=== PATIENT | male | born 1945 | race Caucasian/White ===

== ENCOUNTER 2020-12-01 16:00 | Day surgery (SDC) | payer MEDICARE, OTHER ==
[2020-12-01] MEDS ORDERED: Alum Hydrox/Mag Hydrox/Simeth 30 ML, Lidocaine 2% 15 ML PO ONE ×2 (17:31)
[2020-12-01] MEDS ORDERED: Metoclopramide 10 MG/2 ML SDV IVPUSH ONE (19:03)
[2020-12-01] MEDS ORDERED: Sodium Chloride 0.9% 10 ML Syringe FLUSH PRN (19:03)
[2020-12-01] MEDS ORDERED: Sodium Chloride 0.9% 1,000 ML IV STA (19:03)
[2020-12-01] MEDS ORDERED: HYDROmorphone 0.5 MG/0.5 ML Syringe IVPUSH ONE (19:05)
--- NOTE | 2020-12-01 19:56 | EDM.PDOC ---
ED HPI GENERAL MEDICAL PROBLEM - General Chief Complaint: Abdominal Pain Stated Complaint: ABDOMINAL PAIN Time Seen by Provider: 12/01/20 18:51 Source of Information: Reports: Patient History Limitations: Reports: No Limitations - History of Present Illness INITIAL COMMENTS - FREE TEXT/NARRATIVE: The patient presents with abdominal pain, nausea and vomiting. He says this has been going on for a few days. He had a CT scan done yesterday and it showed inflammation of his stomach. He was given some steroids to take and that is not helping. The patient has nausea and is dry heaving. He has not been able to eat or drink much. He has not had a bowel movement in about 3 days. He says he has no gas now either. He is worried he may be constipated or backed up. He was looking to get an enema. He has no fever, chills, cough, chest pain, shortness of breath, dysuria or diarrhea. He says his abdomen is firm and it hurts all over but worse in the left lower abdomen. He still has his appendix and gallbladder. Onset: Gradual Duration: Day(s): (5) Location: Reports: Abdomen Quality: Reports: Sharp Severity: Moderate Improves with: Reports: None Worsens with: Reports: None Associated Symptoms: Reports: Nausea/Vomiting. 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 Abdomen Pain Score (Numeric/FACES): 9 - Related Data Allergies Allergy/AdvReac Type Severity Reaction Status Date / Time No Known Allergies Allergy Verified 12/01/20 17:29 Home Meds: Home Meds Canagliflozin/Metformin HCl [Invokamet 150-1,000 mg Tablet] 1 tab PO DAILY 12/01/20 [History] Olmesartan/Hydrochlorothiazide [Olmesartan-Hctz 20-12.5 mg Tab] 1 tab PO DAILY 12/01/20 [History] Simvastatin 40 mg PO DAILY 12/01/20 [History] predniSONE [Prednisone] 10 mg PO DAILY 12/01/20 [History] Past Medical History HEENT History: Reports: Impaired Vision Cardiovascular History: Reports: High Cholesterol, Hypertension Gastrointestinal History: Reports: GERD Musculoskeletal History: Reports: Arthritis Psychiatric History: Reports: Anxiety - Past Surgical History GI Surgical History: Reports: Colonoscopy Social & Family History - Tobacco Use Tobacco Use Status *Q: Never Tobacco User - Caffeine Use Caffeine Use: Reports: Coffee - Recreational Drug Use Recreational Drug Use: No ED ROS GENERAL - Review of Systems Review Of Systems: See Below Constitutional: Reports: No Symptoms HEENT: Reports: No Symptoms Respiratory: Reports: No Symptoms Cardiovascular: Reports: No Symptoms Endocrine: Reports: No Symptoms GI/Abdominal: Reports: Abdominal Pain, Constipation, Nausea, Vomiting. Denies: Diarrhea : Reports: No Symptoms Musculoskeletal: Reports: No Symptoms ED EXAM, GI/ABD - Physical Exam Exam: See Below Exam Limited By: No Limitations General Appearance: Alert, No Apparent Distress Ears: Normal External Exam Nose: Normal Inspection Head: Atraumatic, Normocephalic Neck: Normal Inspection Respiratory/Chest: No Respiratory Distress, Lungs Clear, Normal Breath Sounds Cardiovascular: Regular Rate, Rhythm, No Edema, No Murmur GI/Abdominal Exam: Soft, No Organomegaly, No Mass, Distended, Tender (generalized tenderness with more pain to the left lower abdomen) #1 Interpretation EKG Date: 12/01/20 Time: 22:03 Rhythm: Other (sinus tachycardia) Rate (Beats/Min): 105 [place]: Normal P-Wave: Present QRS: Normal ST-T: Normal QT: Normal Course - Vital Signs Last Recorded V/S: Last Vital Signs Temp 98.5 F 12/01/20 17:37 Pulse 101 H 12/01/20 17:37 Resp BP 149/84 H 12/01/20 17:37 Pulse Ox 98 12/01/20 17:37 - Orders/Labs/Meds Orders: Active Orders 24 hr Category Date Time Status Peripheral IV Care [RC] . DIRECTED Care 12/01/20 19:04 Active Abdomen Pelvis wo Cont [CT] Stat Exams 12/01/20 19:03 Taken Sodium Chloride 0.9% [Saline Flush] Med 12/01/20 19:03 Active 10 ml FLUSH ASDIRECTED PRN ED Antiemetic Medication Reflex [OM.PC] Stat Oth 12/01/20 19:04 Ordered Peripheral IV Insertion Adult [OM.PC] Stat Oth 12/01/20 19:03 Ordered EKG 12 Lead [EK] Stat Ther 12/01/20 21:57 Ordered Medication Orders Sodium Chloride (Sodium Chloride 0.9% 10 Ml Syringe) 10 ml FLUSH ASDIRECTED PRN PRN Reason: Keep Vein Open Last Admin: 12/01/20 19:33 Dose: 10 ml Documented by: YAHIR Labs: Laboratory Tests 12/01/20 12/01/20 12/01/20 Range/Units 19:30 19:30 20:03 WBC 16.11 H (4.23-9.07) K/mm3 RBC 4.16 L (4.63-6.08) M/mm3 Hgb 13.6 L (13.7-17.5) gm/dl Hct 40.1 (40.1-51.0) % MCV 96.4 H (79.0-92.2) fl MCH 32.7 H (25.7-32.2) pg MCHC 33.9 (32.2-35.5) g/dl RDW Std Deviation 43.8 (35.1-43.9) fL Plt Count 241 D (163-337) K/mm3 MPV 10.3 (9.4-12.3) fl Neut % (Auto) 85.9 H (34.0-67.9) % Lymph % (Auto) 3.4 L (21.8-53.1) % [place] % (Auto) 10.4 (5.3-12.2) % Eos % (Auto) 0 L (0.8-7.0) Baso % (Auto) 0.0 L (0.1-1.2) % Neut # (Auto) 13.85 H (1.78-5.38) K/mm3 Lymph # (Auto) 0.54 L (1.32-3.57) K/mm3 [place] # (Auto) 1.67 H (0.30-0.82) K/mm3 Eos # (Auto) 0.00 L (0.04-0.54) K/mm3 Baso # (Auto) 0.00 L (0.01-0.08) K/mm3 Manual Slide Review Abnormal smear Sodium 138 (136-145) mEq/L Potassium 3.8 (3.5-5.1) mEq/L Chloride 100 (98-107) mEq/L Carbon Dioxide 25 (21-32) mEq/L Anion Gap 16.8 H (5-15) BUN 32 H (7-18) mg/dL Creatinine 1.3 (0.7-1.3) mg/dL Est Cr Clr Drug Dosing 49.10 mL/min Estimated GFR (MDRD) 54 (>60) mL/min BUN/Creatinine Ratio 24.6 H (14-18) Glucose 149 H (70-99) mg/dL Calcium 9.5 (8.5-10.1) mg/dL Total Bilirubin 0.7 (0.2-1.0) mg/dL AST 20 (15-37) U/L ALT 20 (16-63) U/L Alkaline Phosphatase 66 (46-116) U/L Total Protein 7.8 (6.4-8.2) g/dl Albumin 3.5 (3.4-5.0) g/dl Globulin 4.3 gm/dL Albumin/Globulin Ratio 0.8 L (1-2) Lipase 67 L (73-393) U/L Urine Color (Yellow) Urine Appearance (Clear) Urine pH (5.0-8.0) Ur Specific [place] (1.005-1.030) Urine Protein (Negative) Urine Glucose (UA) (Negative) Urine Ketones (Negative) Urine Occult Blood (Negative) Urine Nitrite (Negative) Urine Bilirubin (Negative) Urine Urobilinogen (0.2-1.0) Ur Leukocyte Esterase (Negative) Urine RBC (0-5) /hpf Urine WBC (0-5) /hpf Ur Squamous Epith Cells (0-5) /hpf Urine Bacteria (FEW) /hpf Urine Mucus (FEW) /hpf SARS-CoV-2 RNA (RYAN) Positive H (NEGATIVE) 12/01/20 Range/Units 23:50 WBC (4.23-9.07) K/mm3 RBC (4.63-6.08) M/mm3 Hgb (13.7-17.5) gm/dl Hct (40.1-51.0) % MCV (79.0-92.2) fl MCH (25.7-32.2) pg MCHC (32.2-35.5) g/dl RDW Std Deviation (35.1-43.9) fL Plt Count (163-337) K/mm3 MPV (9.4-12.3) fl Neut % (Auto) (34.0-67.9) % Lymph % (Auto) (21.8-53.1) % [place] % (Auto) (5.3-12.2) % Eos % (Auto) (0.8-7.0) Baso % (Auto) (0.1-1.2) % Neut # (Auto) (1.78-5.38) K/mm3 Lymph # (Auto) (1.32-3.57) K/mm3 [place] # (Auto) (0.30-0.82) K/mm3 Eos # (Auto) (0.04-0.54) K/mm3 Baso # (Auto) (0.01-0.08) K/mm3 Manual Slide Review Sodium (136-145) mEq/L Potassium (3.5-5.1) mEq/L Chloride (98-107) mEq/L Carbon Dioxide (21-32) mEq/L Anion Gap (5-15) BUN (7-18) mg/dL Creatinine (0.7-1.3) mg/dL Est Cr Clr Drug Dosing mL/min Estimated GFR (MDRD) (>60) mL/min BUN/Creatinine Ratio (14-18) Glucose (70-99) mg/dL Calcium (8.5-10.1) mg/dL Total Bilirubin (0.2-1.0) mg/dL AST (15-37) U/L ALT (16-63) U/L Alkaline Phosphatase (46-116) U/L Total Protein (6.4-8.2) g/dl Albumin (3.4-5.0) g/dl Globulin gm/dL Albumin/Globulin Ratio (1-2) Lipase (73-393) U/L Urine Color Yellow (Yellow) Urine Appearance Clear (Clear) Urine pH 6.0 (5.0-8.0) Ur Specific [place] 1.025 (1.005-1.030) Urine Protein Trace H (Negative) Urine Glucose (UA) 2+ H (Negative) Urine Ketones 1+ H (Negative) Urine Occult Blood Negative (Negative) Urine Nitrite Negative (Negative) Urine Bilirubin Negative (Negative) Urine Urobilinogen 0.2 (0.2-1.0) Ur Leukocyte Esterase Negative (Negative) Urine RBC Not seen (0-5) /hpf Urine WBC Not seen (0-5) /hpf Ur Squamous Epith Cells Not seen (0-5) /hpf Urine Bacteria Few (FEW) /hpf Urine Mucus Rare (FEW) /hpf SARS-CoV-2 RNA (RYAN) (NEGATIVE) Meds: Medications Generic Name Dose Route Start Last Admin Trade Name Jose PRN Reason Stop Dose Admin Sodium Chloride 10 ml 12/01/20 19:03 12/01/20 19:33 Sodium Chloride 0.9% 10 Ml Syringe FLUSH 10 ml ASDIRECTED PRN Administration Keep Vein Open Discontinued Medications Generic Name Dose Route Start Last Admin Trade Name Jose PRN Reason Stop Dose Admin Al Hydroxide/Mg Hydroxide 30 0 ml 12/01/20 17:31 12/01/20 17:51 ml/ Lidocaine HCl 15 ml PO 12/01/20 17:32 45 ml ONETIME ONE Administration Hydromorphone HCl 0.25 mg 12/01/20 19:05 12/01/20 19:32 Hydromorphone 0.5 Mg/0.5 Ml Syringe IVPUSH 12/01/20 19:06 0.25 mg ONETIME ONE Administration Sodium Chloride 1,000 mls @ 1,000 mls/hr 12/01/20 19:03 12/01/20 19:32 Normal Saline IV 12/01/20 20:02 1,000 mls/hr .BOLUS STA Administration Ceftriaxone Sodium 2 gm/ 100 mls @ 200 mls/hr 12/01/20 21:26 12/01/20 21:42 Sodium Chloride IV 12/01/20 21:55 200 mls/hr ONETIME ONE Administration Metoclopramide HCl 10 mg 12/01/20 19:03 12/01/20 19:33 Metoclopramide 10 Mg/2 Ml Sdv IVPUSH 12/01/20 19:04 10 mg ONETIME ONE Administration - Re-Assessments/Exams Free Text/Narrative Re-Assessment/Exam: 12/01/20 19:56 I ordered an IV NS 1L bolus, reglan 10mg IV, dilaudid 0.25mg IV, labs, UA and a CT of his abdomen and pelvis without contrast. 12/01/20 21:58 His WBC is elevated at 16.11. His anion gap was elevated at 16.8. His glucose was elevated at 141. His lipase is normal. He is COVID positive. His CT shows findings indicative of acute cholecystitis including weakly calcified calculi and or sludge at the level of the gallbladder neck and cystic. Please correlate with the clinic setting and US as clinically indicated. Diffuse fatty infiltration of the pancreas. Mild enlargement fo the prostate gl and with nodular mass effect upon the bladder base. I ordered rocephin 2 grams IV. We do not have a bed and there is no beds in the state. I talked with my surgeon Dr Jansen and he wanted me to give him antibiotics, NPO after midnight an he will see him in the morning to get his gallbladder out tomorrow. The patient said he had his COVID immunizations and 2 weeks ago he was positive for COVID. He has been cleared by the state and he has no COVID symptoms. 12/01/20 22:07 Her EKG shows a sinus tachycardia with no acute changes. 12/02/20 06:38 Dr Jansen will see him this morning and take him to surgery. Departure - Departure Time of Disposition: 06:40 Disposition: DC/Tfer to [facility] Condition: Fair Clinical Impression: Cholecystitis - Discharge Information Referrals: Elpidio Doherty MD [Primary Care Provider] - Forms: ED Department Discharge - My Orders Last 24 Hours: My Active Orders 12/01/20 19:03 Abdomen Pelvis wo Cont [CT] Stat Sodium Chloride 0.9% [Saline Flush] 10 ml FLUSH ASDIRECTED PRN Peripheral IV Insertion Adult [OM.PC] Stat 12/01/20 19:04 Peripheral IV Care [RC] . DIRECTED ED Antiemetic Medication Reflex [OM.PC] Stat 12/01/20 21:57 EKG 12 Lead [EK] Stat - Assessment/Plan Last 24 Hours: My Active Orders 12/01/20 19:03 Abdomen Pelvis wo Cont [CT] Stat Sodium Chloride 0.9% [Saline Flush] 10 ml FLUSH ASDIRECTED PRN Peripheral IV Insertion Adult [OM.PC] Stat 12/01/20 19:04 Peripheral IV Care [RC] . DIRECTED ED Antiemetic Medication Reflex [OM.PC] Stat 12/01/20 21:57 EKG 12 Lead [EK] Stat
[2020-12-01] MEDS ORDERED: cefTRIAXone 2 GM in Sodium Chloride 0.9% 100 ML IV ONE (21:26)
[2020-12-01] MEDS ORDERED: Albuterol 0.083% 2.5 MG/3 ML Neb Soln NEB ONE (21:35)
--- NOTE | 2020-12-02 07:34 | CT ---
CT abdomen and pelvis Technique: Multiple axial sections were obtained from above the dome of the diaphragm inferiorly through the pubic symphysis. Intravenous and oral contrast were not utilized. Study has been performed as a ureteral stone protocol. Reconstructed coronal and sagittal images were obtained. Comparison: No prior abdominal imaging is available. Findings: Right and left kidneys show no hydronephrosis or abnormal calcifications. Left kidney shows what appears to be a small cyst within the upper pole measuring about 9 mm. No ureteral dilatation or ureteral stone is seen. Visualized lung bases show nothing acute. Noncontrast appearance of the liver shows no focal abnormality. Spleen size is normal. Gallbladder is slightly dilated. Possible cholelithiasis is noted. Minimal density is noted around the gallbladder and uncertain if this is chronic or acute. Pancreas shows fatty atrophy. Small low density finding is seen within the body of the pancreas measuring 1.2 cm which has Hounsfield unit measurements of more focal fat which is believed to be incidental. Abdominal aorta shows atherosclerotic change without aneurysm. No retroperitoneal adenopathy or mesenteric abnormalities are seen. Appendix is felt to be visualized and appears normal in size. Prostate gland shows calcifications and is felt to be slightly enlarged. Minimal fat within the inguinal canal is incidentally noted. Slight increased stool within the colon is noted. Bone window settings were reviewed which show scattered degenerative change within the spine. No definite acute osseous abnormality is appreciated. Impression: 1. Gallbladder slightly distended with gallstones. Slight density around the gallbladder either acute or chronic. Please correlate if patient has any right upper quadrant symptoms to indicate further imaging by ultrasound. 2. Small cyst within the left kidney. No renal calculi are seen. No ureteral dilatation or ureteral stone is seen. 3. Other chronic findings as described above. Diagnostic code #3 I agree with preliminary report from [facility], finalized on 12/01/20, 10:20 PM CDT, code 1
[2020-12-02] MEDS ORDERED: Bupivacaine 0.5%/EPINEPHrine 1:200,000 50 ML MDV ONE (08:50)
--- NOTE | 2020-12-02 09:03 | PCM.PREANE ---
Preanesthetic Assessment - Procedure Proposed Procedure: Laparoscopic cholecystectomy - Anesthesia/Transfusion/Family Hx Anesthesia History: Prior Anesthesia Reaction Type of Anesthesia Reaction: Excessive Nausea/Vomiting Family History of Anesthesia Reaction: No Transfusion History: No Prior Transfusion(s) Intubation History: Unknown - Review of Systems General: No Symptoms Pulmonary: No Symptoms Cardiovascular: No Symptoms Gastrointestinal: Abdominal Pain, Diarrhea, Nausea, Vomiting Neurological: No Symptoms Other: Reports: Diabetes - Physical Assessment NPO Status Date: 12/01/20 NPO Status Time: 23:59 Vital Signs: Last Vital Signs Temp 97.8 F 12/02/20 06:45 Pulse 96 12/02/20 06:45 Resp 16 12/02/20 06:45 BP 114/57 L 12/02/20 06:45 Pulse Ox 92 L 12/02/20 06:45 Height: 1.75 m Weight: 112.491 kg ASA Class: 2E Mental Status: Alert & Oriented x3 Airway Class: Mallampati = 2 Dentition: Reports: Broken Tooth/Teeth, Missing Tooth/Teeth (Very poor dentition), Caries Thyro-Mental Finger Breadths: 3 Mouth Opening Finger Breadths: 3 ROM/Head Extension: Full Lungs: Normal Respiratory Effort, Wheezing Cardiovascular: Regular Rate, Regular Rhythm, No Murmurs - Lab Values: Laboratory Last Values WBC 16.11 K/mm3 (4.23-9.07) H 12/01/20 19:30 RBC 4.16 M/mm3 (4.63-6.08) L 12/01/20 19:30 Hgb 13.6 gm/dl (13.7-17.5) L 12/01/20 19:30 Hct 40.1 % (40.1-51.0) 12/01/20 19:30 MCV 96.4 fl (79.0-92.2) H 12/01/20 19:30 MCH 32.7 pg (25.7-32.2) H 12/01/20 19:30 MCHC 33.9 g/dl (32.2-35.5) 12/01/20 19:30 RDW Std Deviation 43.8 fL (35.1-43.9) 12/01/20 19:30 Plt Count 241 K/mm3 (163-337) D 12/01/20 19:30 MPV 10.3 fl (9.4-12.3) 12/01/20 19:30 Neut % (Auto) 85.9 % (34.0-67.9) H 12/01/20 19:30 Lymph % (Auto) 3.4 % (21.8-53.1) L 12/01/20 19:30 [place] % (Auto) 10.4 % (5.3-12.2) 12/01/20 19:30 Eos % (Auto) 0 (0.8-7.0) L 12/01/20 19:30 Baso % (Auto) 0.0 % (0.1-1.2) L 12/01/20 19:30 Neut # (Auto) 13.85 K/mm3 (1.78-5.38) H 12/01/20 19:30 Lymph # (Auto) 0.54 K/mm3 (1.32-3.57) L 12/01/20 19:30 [place] # (Auto) 1.67 K/mm3 (0.30-0.82) H 12/01/20 19:30 Eos # (Auto) 0.00 K/mm3 (0.04-0.54) L 12/01/20 19:30 Baso # (Auto) 0.00 K/mm3 (0.01-0.08) L 12/01/20 19:30 Manual Slide Review Abnormal smear 12/01/20 19:30 Sodium 138 mEq/L (136-145) 12/01/20 19:30 Potassium 3.8 mEq/L (3.5-5.1) 12/01/20 19:30 Chloride 100 mEq/L (98-107) 12/01/20 19:30 Carbon Dioxide 25 mEq/L (21-32) 12/01/20 19:30 Anion Gap 16.8 (5-15) H 12/01/20 19:30 BUN 32 mg/dL (7-18) H 12/01/20 19:30 Creatinine 1.3 mg/dL (0.7-1.3) 12/01/20 19:30 Est Cr Clr Drug Dosing 49.10 mL/min 12/01/20 19:30 Estimated GFR (MDRD) 54 mL/min (>60) 12/01/20 19:30 BUN/Creatinine Ratio 24.6 (14-18) H 12/01/20 19:30 Glucose 149 mg/dL (70-99) H 12/01/20 19:30 Calcium 9.5 mg/dL (8.5-10.1) 12/01/20 19:30 Total Bilirubin 0.7 mg/dL (0.2-1.0) 12/01/20 19:30 AST 20 U/L (15-37) 12/01/20 19:30 ALT 20 U/L (16-63) 12/01/20 19:30 Alkaline Phosphatase 66 U/L (46-116) 12/01/20 19:30 Total Protein 7.8 g/dl (6.4-8.2) 12/01/20 19: Albumin 3.5 g/dl (3.4-5.0) 12/01/20 19: Globulin 4.3 gm/dL 12/01/20 19:30 Albumin/Globulin Ratio 0.8 (1-2) L 12/01/20 19: Lipase 67 U/L (73-393) L 12/01/20 19:30 Urine Color Yellow (Yellow) 12/01/20 23:50 Urine Appearance Clear (Clear) 12/01/20 23:50 Urine pH 6.0 (5.0-8.0) 12/01/20 23:50 Ur Specific [place] 1.025 (1.005-1.030) 12/01/20 23:50 Urine Protein Trace (Negative) H 12/01/20 23:50 Urine Glucose (UA) 2+ (Negative) H 12/01/20 23:50 Urine Ketones 1+ (Negative) H 12/01/20 23:50 Urine Occult Blood Negative (Negative) 12/01/20 23:50 Urine Nitrite Negative (Negative) 12/01/20 23:50 Urine Bilirubin Negative (Negative) 12/01/20 23:50 Urine Urobilinogen 0.2 (0.2-1.0) 12/01/20 23:50 Ur Leukocyte Esterase Negative (Negative) 12/01/20 23:50 Urine RBC Not seen /hpf (0-5) 12/01/20 23:50 Urine WBC Not seen /hpf (0-5) 12/01/20 23:50 Ur Squamous Epith Cells Not seen /hpf (0-5) 12/01/20 23:50 Urine Bacteria Few /hpf (FEW) 12/01/20 23:50 Urine Mucus Rare /hpf (FEW) 12/01/20 23:50 SARS-CoV-2 RNA (RYAN) Positive (NEGATIVE) H 12/01/20 20:03 - Imaging/EKG Impressions: EKG 12/01/20 ST HR 105 - Allergies Allergies/Adverse Reactions: Allergies Allergy/AdvReac Type Severity Reaction Status Date / Time No Known Allergies Allergy Verified 12/01/20 17:29 - Blood Blood Available: No Product(s) Available: None - Anesthesia Plan Free Text/Narrative:: Patient has not taken meds for 3 days - Acknowledgements Anesthesia Type Planned: General Anesthesia Pt an Appropriate Candidate for the Planned Anesthesia: Yes Alternatives and Risks of Anesthesia Discussed w Pt/Guardian: Yes Pt/Guardian Understands and Agrees with Anesthesia Plan: Yes PreAnesthesia Questionnaire HEENT History: Reports: Hard of Hearing (wears hearing aids), Impaired Vision Cardiovascular History: Reports: High Cholesterol, Hypertension Respiratory History: Reports: Sleep Apnea Gastrointestinal History: Reports: GERD (Has been increased with gallbladder pain) Genitourinary History: Reports: None Musculoskeletal History: Reports: Arthritis Neurological History: Reports: None Psychiatric History: Reports: Anxiety Endocrine/Metabolic History: Reports: Diabetes, Type II, Obesity/BMI 30+ Hematologic History: Reports: None Immunologic History: Reports: None Oncologic (Cancer) History: Reports: None Dermatologic History: Reports: None - Infectious Disease History Infectious Disease History: Reports: Novel Coronavirus (Patient was positive two weeks ago, has been cleared by the state 11/20/20 per patient, does not have COVID symptoms, has been vaccinated) - Past Surgical History HEENT Surgical History: Reports: Oral Surgery GI Surgical History: Reports: Colonoscopy - SUBSTANCE USE Tobacco Use Status *Q: Never Tobacco User Tobacco Use Within Last Twelve Months: No Second Hand Smoke Exposure: No Days Per Week of Alcohol Use: 1 Number of Drinks Per Day: 2 Total Drinks Per Week: 2 Date of Last Drink: 11/13/20 Time of Last Drink: 20:00 Recreational Drug Use History: No - HOME MEDS Home Medications: Home Meds Canagliflozin/Metformin HCl [Invokamet 150-1,000 mg Tablet] 1 tab PO DAILY 12/01/20 [History] Olmesartan/Hydrochlorothiazide [Olmesartan-Hctz 20-12.5 mg Tab] 1 tab PO DAILY 12/01/20 [History] Simvastatin 40 mg PO DAILY 12/01/20 [History] predniSONE [Prednisone] 10 mg PO DAILY 12/01/20 [History] - CURRENT (IN HOUSE) MEDS Current Meds: Current Medications Sodium Chloride (Sodium Chloride 0.9% 10 Ml Syringe) 10 ml FLUSH ASDIRECTED PRN PRN Reason: Keep Vein Open Last Admin: 12/01/20 19:33 Dose: 10 ml Documented by: Discontinued Medications Bupivacaine HCl/Epinephrine Bitart (Bupivacaine 0.5%/Epinephrine 1:200,000 50 Ml Mdv) Confirm Administered Dose 50 ml .ROUTE .STK-MED ONE Stop: 12/02/20 08:51 Al Hydroxide/Mg Hydroxide 30 (ml/ Lidocaine HCl 15 ml) 0 ml PO ONETIME ONE Stop: 12/01/20 17:32 Last Admin: 12/01/20 17:51 Dose: 45 ml Documented by: Hydromorphone HCl (Hydromorphone 0.5 Mg/0.5 Ml Syringe) 0.25 mg IVPUSH ONETIME ONE Stop: 12/01/20 19:06 Last Admin: 12/01/20 19:32 Dose: 0.25 mg Documented by: Sodium Chloride (Normal Saline) 1,000 mls @ 1,000 mls/hr IV .BOLUS STA Stop: 12/01/20 20:02 Last Admin: 12/01/20 19:32 Dose: 1,000 mls/hr Documented by: Ceftriaxone Sodium 2 gm/ (Sodium Chloride) 100 mls @ 200 mls/hr IV ONETIME ONE Stop: 12/01/20 21:55 Last Admin: 12/01/20 21:42 Dose: 200 mls/hr Documented by: Metoclopramide HCl (Metoclopramide 10 Mg/2 Ml Sdv) 10 mg IVPUSH ONETIME ONE Stop: 12/01/20 19:04 Last Admin: 12/01/20 19:33 Dose: 10 mg Documented by:
[2020-12-02] MEDS ORDERED: Citric Acid/Sodium Citrate Solution 30 ML Cup PO ONE (09:26)
[2020-12-02] MEDS ORDERED: Albuterol 0.083% 2.5 MG/3 ML Neb Soln NEB ONE ×2 (09:26→16:00)
[2020-12-02] MEDS ORDERED: Lidocaine 1% 4 ML ONE (09:26)
[2020-12-02] MEDS ORDERED: Ondansetron 4 MG/2 ML SDV ONE (09:26)
[2020-12-02] MEDS ORDERED: Rocuronium 50 MG/5 ML Vial ONE (09:26)
[2020-12-02] MEDS ORDERED: Propofol 200 MG/20 ML SDV ONE (09:27)
[2020-12-02] MEDS ORDERED: Midazolam 1 MG/ML 2 ML SDV ONE (09:27)
[2020-12-02] MEDS ORDERED: Dexamethasone 4 MG/ML 5 ML MDV ONE (09:27)
[2020-12-02] MEDS ORDERED: fentaNYL 250 MCG/5 ML SDV ONE (09:27)
[2020-12-02] MEDS ORDERED: Lactated Ringers 1,000 ML IV SCH (09:30)
--- NOTE | 2020-12-02 09:55 | PCM.HP.2 ---
H&P History of Present Illness - General Date of Service: 12/02/20 Source of Information: Patient History Limitations: Reports: No Limitations - History of Present Illness Initial Comments - Free Text/Narative: Patient started having abdominal pain, bloating, nausea 3 days ago. Eating made symptoms worse. He tried to wait at home but the pain never improved. He presented to the hospital. WBC was 16, He was tachycardic. CT revealed gallbladder wall thickening and some pericholecystic fluid. Acute cholecystitis was suspected. I was called about the patient and saw him this AM, examined him and confirmed RUQ pain. Along with imaging findings, acute cholecystitis is likely. He denies any abdominal surgeries in the past. He has had back surgeries.He denies any cardiopulm issues. He does not smoke. He had been vaccinated against Covid-19 but did get Civid-19 infection 2 weeks ago with mild symptoms. He has now recovered and has no pulmonary issues. He had similar episodes 2 times in the past but these did not persist for days. Onset of Symptoms: Reports: Gradual Duration of Symptoms: Reports: Day(s): (3) Location: Reports: Abdomen Quality: Reports: Sharp Severity: Severe Improves with: Reports: None Worsens with: Reports: Eating Associated Symptoms: Reports: Nausea/Vomiting, Other (bloating) Abdomen Pain Score (Numeric/FACES): 4 - Related Data Allergies/Adverse Reactions: Allergies Allergy/AdvReac Type Severity Reaction Status Date / Time No Known Allergies Allergy Verified 12/02/20 09:26 Home Medications: Home Meds Canagliflozin/Metformin HCl [Invokamet 150-1,000 mg Tablet] 1 tab PO DAILY 12/01/20 [History] Olmesartan/Hydrochlorothiazide [Olmesartan-Hctz 20-12.5 mg Tab] 1 tab PO DAILY 12/01/20 [History] Simvastatin 40 mg PO DAILY 12/01/20 [History] predniSONE [Prednisone] 10 mg PO DAILY 12/01/20 [History] Past Medical History HEENT History: Reports: Hard of Hearing (wears hearing aids), Impaired Vision Cardiovascular History: Reports: High Cholesterol, Hypertension Respiratory History: Reports: Sleep Apnea Gastrointestinal History: Reports: GERD (Has been increased with gallbladder pain) Genitourinary History: Reports: None Musculoskeletal History: Reports: Arthritis Neurological History: Reports: None Psychiatric History: Reports: Anxiety Endocrine/Metabolic History: Reports: Diabetes, Type II, Obesity/BMI 30+ Hematologic History: Reports: None Immunologic History: Reports: None Oncologic (Cancer) History: Reports: None Dermatologic History: Reports: None - Infectious Disease History Infectious Disease History: Reports: Novel Coronavirus (Patient was positive two weeks ago, has been cleared by the state 11/20/20 per patient, does not have COVID symptoms, has been vaccinated) - Past Surgical History HEENT Surgical History: Reports: Oral Surgery Social & Family History - Tobacco Use Tobacco Use Status *Q: Never Tobacco User Second Hand Smoke Exposure: No - Caffeine Use Caffeine Use: Reports: Coffee - Alcohol Use Days Per Week of Alcohol Use: 1 Number of Drinks Per Day: 2 Total Drinks Per Week: 2 Date of Last Drink: 11/13/20 Time of Last Drink: 20:00 - Recreational Drug Use Recreational Drug Use: No H&P Review of Systems - Review of Systems: Review Of Systems: See Below General: Reports: No Symptoms HEENT: Reports: No Symptoms Pulmonary: Reports: No Symptoms Cardiovascular: Reports: No Symptoms Gastrointestinal: Reports: Abdominal Pain Genitourinary: Reports: No Symptoms Musculoskeletal: Reports: No Symptoms Skin: Reports: No Symptoms Psychiatric: Reports: No Symptoms Neurological: Reports: No Symptoms Exam - Exam Exam: See Below - Vital Signs Vital Signs: Last Vital Signs Temp 97.3 F 12/02/20 08:40 Pulse 79 12/02/20 08:40 Resp 16 12/02/20 08:40 BP 133/74 12/02/20 08:40 Pulse Ox 97 12/02/20 08:40 Weight: 112.7 kg - Exam General: Alert, Oriented, Cooperative Lungs: Clear to Auscultation, Normal Respiratory Effort Cardiovascular: Regular Rate, Regular Rhythm, Normal S1, Normal S2 GI/Abdominal Exam: Soft, Distended, Tender (RUQ) - Patient Data Lab Results Last 24 hrs: Laboratory Results - last 24 hr 12/01/20 12/01/20 12/01/20 Range/Units 19:30 19:30 20:03 WBC 16.11 H (4.23-9.07) K/mm3 RBC 4.16 L (4.63-6.08) M/mm3 Hgb 13.6 L (13.7-17.5) gm/dl Hct 40.1 (40.1-51.0) % MCV 96.4 H (79.0-92.2) fl MCH 32.7 H (25.7-32.2) pg MCHC 33.9 (32.2-35.5) g/dl RDW Std Deviation 43.8 (35.1-43.9) fL Plt Count 241 D (163-337) K/mm3 MPV 10.3 (9.4-12.3) fl Neut % (Auto) 85.9 H (34.0-67.9) % Lymph % (Auto) 3.4 L (21.8-53.1) % [place] % (Auto) 10.4 (5.3-12.2) % Eos % (Auto) 0 L (0.8-7.0) Baso % (Auto) 0.0 L (0.1-1.2) % Neut # (Auto) 13.85 H (1.78-5.38) K/mm3 Lymph # (Auto) 0.54 L (1.32-3.57) K/mm3 [place] # (Auto) 1.67 H (0.30-0.82) K/mm3 Eos # (Auto) 0.00 L (0.04-0.54) K/mm3 Baso # (Auto) 0.00 L (0.01-0.08) K/mm3 Manual Slide Review Abnormal smear Sodium 138 (136-145) mEq/L Potassium 3.8 (3.5-5.1) mEq/L Chloride 100 (98-107) mEq/L Carbon Dioxide 25 (21-32) mEq/L Anion Gap 16.8 H (5-15) BUN 32 H (7-18) mg/dL Creatinine 1.3 (0.7-1.3) mg/dL Est Cr Clr Drug Dosing 49.10 mL/min Estimated GFR (MDRD) 54 (>60) mL/min BUN/Creatinine Ratio 24.6 H (14-18) Glucose 149 H (70-99) mg/dL Calcium 9.5 (8.5-10.1) mg/dL Total Bilirubin 0.7 (0.2-1.0) mg/dL AST 20 (15-37) U/L ALT 20 (16-63) U/L Alkaline Phosphatase 66 (46-116) U/L Total Protein 7.8 (6.4-8.2) g/dl Albumin 3.5 (3.4-5.0) g/dl Globulin 4.3 gm/dL Albumin/Globulin Ratio 0.8 L (1-2) Lipase 67 L (73-393) U/L Urine Color (Yellow) Urine Appearance (Clear) Urine pH (5.0-8.0) Ur Specific [place] (1.005-1.030) Urine Protein (Negative) Urine Glucose (UA) (Negative) Urine Ketones (Negative) Urine Occult Blood (Negative) Urine Nitrite (Negative) Urine Bilirubin (Negative) Urine Urobilinogen (0.2-1.0) Ur Leukocyte Esterase (Negative) Urine RBC (0-5) /hpf Urine WBC (0-5) /hpf Ur Squamous Epith Cells (0-5) /hpf Urine Bacteria (FEW) /hpf Urine Mucus (FEW) /hpf SARS-CoV-2 RNA (RYAN) Positive H (NEGATIVE) 12/01/20 Range/Units 23:50 WBC (4.23-9.07) K/mm3 RBC (4.63-6.08) M/mm3 Hgb (13.7-17.5) gm/dl Hct (40.1-51.0) % MCV (79.0-92.2) fl MCH (25.7-32.2) pg MCHC (32.2-35.5) g/dl RDW Std Deviation (35.1-43.9) fL Plt Count (163-337) K/mm3 MPV (9.4-12.3) fl Neut % (Auto) (34.0-67.9) % Lymph % (Auto) (21.8-53.1) % [place] % (Auto) (5.3-12.2) % Eos % (Auto) (0.8-7.0) Baso % (Auto) (0.1-1.2) % Neut # (Auto) (1.78-5.38) K/mm3 Lymph # (Auto) (1.32-3.57) K/mm3 [place] # (Auto) (0.30-0.82) K/mm3 Eos # (Auto) (0.04-0.54) K/mm3 Baso # (Auto) (0.01-0.08) K/mm3 Manual Slide Review Sodium (136-145) mEq/L Potassium (3.5-5.1) mEq/L Chloride (98-107) mEq/L Carbon Dioxide (21-32) mEq/L Anion Gap (5-15) BUN (7-18) mg/dL Creatinine (0.7-1.3) mg/dL Est Cr Clr Drug Dosing mL/min Estimated GFR (MDRD) (>60) mL/min BUN/Creatinine Ratio (14-18) Glucose (70-99) mg/dL Calcium (8.5-10.1) mg/dL Total Bilirubin (0.2-1.0) mg/dL AST (15-37) U/L ALT (16-63) U/L Alkaline Phosphatase (46-116) U/L Total Protein (6.4-8.2) g/dl Albumin (3.4-5.0) g/dl Globulin gm/dL Albumin/Globulin Ratio (1-2) Lipase (73-393) U/L Urine Color Yellow (Yellow) Urine Appearance Clear (Clear) Urine pH 6.0 (5.0-8.0) Ur Specific [place] 1.025 (1.005-1.030) Urine Protein Trace H (Negative) Urine Glucose (UA) 2+ H (Negative) Urine Ketones 1+ H (Negative) Urine Occult Blood Negative (Negative) Urine Nitrite Negative (Negative) Urine Bilirubin Negative (Negative) Urine Urobilinogen 0.2 (0.2-1.0) Ur Leukocyte Esterase Negative (Negative) Urine RBC Not seen (0-5) /hpf Urine WBC Not seen (0-5) /hpf Ur Squamous Epith Cells Not seen (0-5) /hpf Urine Bacteria Few (FEW) /hpf Urine Mucus Rare (FEW) /hpf SARS-CoV-2 RNA (RYAN) (NEGATIVE) Result Diagrams: 12/01/20 19:30 12/01/20 19:30 Sepsis Event Note - Evaluation Sepsis Screening Result: No Definite Risk - Focused Exam Vital Signs: Vital Signs Temp Pulse Resp BP Pulse Ox 12/02/20 08:40 97.3 F 79 16 133/74 97 12/02/20 06:45 97.8 F 96 16 114/57 L 92 L Problem List Initiated/Reviewed/Updated: No Orders Last 24hrs: Active Orders 24 hr Category Date Time Status Peripheral IV Care [RC] . DIRECTED Care 12/01/20 19:04 Active RT Aerosol Therapy [RC] ASDIRECTED Care 12/02/20 09:26 Active Lactated Ringers [Ringers, Lactated] 1,000 ml Med 12/02/20 09:30 Active IV ASDIRECTED Sodium Chloride 0.9% [Saline Flush] Med 12/01/20 19:03 Active 10 ml FLUSH ASDIRECTED PRN ED Antiemetic Medication Reflex [OM.PC] Stat Oth 12/01/20 19:04 Ordered Peripheral IV Insertion Adult [OM.PC] Stat Oth 12/01/20 19:03 Ordered EKG 12 Lead [EK] Stat Ther 12/01/20 21:57 Ordered Medication Orders Lactated Ringer's (Ringers, Lactated) 1,000 mls @ 75 mls/hr IV ASDIRECTED JUANITO Stop: 12/02/20 23:00 Last Admin: 12/02/20 09:40 Dose: 75 mls/hr Documented by: RADHA Sodium Chloride (Sodium Chloride 0.9% 10 Ml Syringe) 10 ml FLUSH ASDIRECTED PRN PRN Reason: Keep Vein Open Last Admin: 12/01/20 19:33 Dose: 10 ml Documented by: YAHIR Assessment/Plan Comment:: Patient has acute cholecystitis due to gallstones. I recommended we proceed with cholecystectomy. We discussed risks, benefits and alternatives. some risks discussed include bleeding, infection, injury to adjacent structures and organs, need for open procedure. I also discussed with the patient that the hospital at this time is overwhelmed with Covid-19 patients and we have a shortage of beds statewide therefore it is possible that we may need to send the patient home as soon as he is stable enough to be discharged. Patient verbalized understanding. Informed consent was obtained. We will proceed with surgery this morning. - Mortality Measure Prognosis:: Good (single organ illness at this time.)
[2020-12-02] MEDS ORDERED: Succinylcholine/Sod PF 100 MG/5 ML SYRINGE IV ONE (10:40)
[2020-12-02] MEDS ORDERED: ceFAZolin 1 GM Vial ONE (10:53)
[2020-12-02] MEDS ORDERED: Ketamine 500 mg/10 ML MDV ONE (11:00)
[2020-12-02] MEDS ORDERED: fentaNYL 100 MCG/2 ML SDV IVPUSH PRN (11:03)
[2020-12-02] MEDS ORDERED: Ondansetron 4 MG/2 ML SDV IVPUSH PRN (11:03)
[2020-12-02] MEDS ORDERED: HYDROmorphone 0.5 MG/0.5 ML Syringe IVPUSH PRN (11:03)
[2020-12-02] MEDS ORDERED: Lactated Ringers 1,000 ML ONE ×2 (11:33→12:27)
--- NOTE | 2020-12-02 13:12 | PCM.POSTAN ---
POST ANESTHESIA ASSESSMENT - MENTAL STATUS Mental Status: Alert, Oriented - VITAL SIGNS Vital Signs: Last Vital Signs Temp 97.3 F 12/02/20 08:40 Pulse 79 12/02/20 08:40 Resp 16 12/02/20 08:40 BP 133/74 12/02/20 08:40 Pulse Ox 97 12/02/20 08:40 1306 123/75 98% 103 12 97.2 - RESPIRATORY Respiratory Status: Respiratory Rate WNL, Airway Patent, O2 Saturation Stable, Supplemental Oxygen - CARDIOVASCULAR CV Status: Pulse Rate WNL, Blood Pressure Stable - GASTROINTESTINAL GI Status: No Symptoms - PAIN Pain Score: 0 - POST OP HYDRATION Hydration Status: Adequate & Stable
--- NOTE | 2020-12-02 13:56 | OR ---
DATE OF OPERATION: 12/02/2020 SURGEON: Toño Jansen MD PREOPERATIVE DIAGNOSIS: Acute cholecystitis. POSTOPERATIVE DIAGNOSIS: Acute cholecystitis. OPERATION PERFORMED: Laparoscopic cholecystectomy. ANESTHESIA: General endotracheal with local consisting 1% lidocaine with epinephrine. COMPLICATIONS: None. ESTIMATED BLOOD LOSS: 200 mL. INDICATION AND CONSENT: Mr. Bautista is a 75-year-old male with diabetes and high blood pressure, who has been suffering from right upper quadrant abdominal pain for the past 3 days. The patient is unable to take anything by mouth, but taking any food exacerbates the pain. The patient had two prior episodes that did not last this long. Because of persistent pain, patient presented to the emergency department. CT scan revealed pericholecystic fluid and thickened gallbladder wall. White count of 16. Pain persisted. Therefore, I was called and I assessed the patient and offered the patient laparoscopic cholecystectomy due to his acute cholecystitis. We discussed risks, benefits, and alternatives, and informed consent was obtained. DESCRIPTION OF PROCEDURE: The patient was taken to the operating room, placed in supine position. SCDs were placed. The patient was padded appropriately. The right arm was tacked, then the patient's abdomen was clipped of hair and prepped and draped in the usual sterile fashion. The patient had received Rocephin in the emergency department. In addition to that, Ancef was given in the operating room for perioperative antibiotics. Then, anesthesia was induced, time-out was performed. The abdomen was prepped and draped in the usual sterile fashion. We began the procedure by injecting local anesthetic in the supraumbilical position. An incision was made and then the umbilical stalk was elevated and Veress needle was inserted at this site. The abdomen was insufflated to 15 mmHg. Then, after that, a 12 mm trocar was placed under visualization of a 10 scope. Cursory examination of the abdomen did not reveal any injury to the trocar or Veress needle insertion. In the right upper quadrant, there was a very distended gallbladder draped with omentum. Then, we placed three additional 5 mm trocars, one in the subxiphoid and two in the right subcostal area and placed the patient in the slight reverse Trendelenburg with left side down slightly. We focused in the right upper quadrant. The omentum that was draping the gallbladder was taken down. This was inflamed. Adhesions with omentum were taken down slowly and bluntly with suction health plan manager device. Then, because of the severe distention of the gallbladder and severe inflammation, we decided to decompress the gallbladder with a needle. About 60 mL of dark gallbladder fluid was taken out. Then, the gallbladder was grasped and elevated cranially and then slowly we started working and exposing and dissecting the Calot triangle. There was severe acute inflammation in this area. Therefore, there was significant oozing and inflammatory fluid. We used meticulous blunt dissection with suction device to be able to dissect this area safely. We were able to isolate and skeletonize the cystic duct as well as the cystic artery and obtain the critical angle of safety. Once this was obtained, we clipped the cystic artery and cystic duct with three clips and transected such that the two clips remained in situ. Because of the severe inflammation of the cystic duct, we reinforced the clips with an Endoloop of 2-0 Ethibond suture. Then, slowly we were able to remove the gallbladder from its gallbladder fossa using both blunt as well as bovie electrosurgery. There was oozing as this dissection was being carried out, but the gallbladder was safely removed from the gallbladder fossa. Once this was done, we irrigated the dissection site as well as the liver with 1 L of normal saline and suctioned the irrigant out. We inspected the dissection site, which had an adherent clot, but there was no active bleeding. Therefore, we proceeded with removal of the gallbladder. The gallbladder was placed in an EndoCatch bag and removed through the supraumbilical incision site. Because of the thickness and the size of the gallbladder, we had to extend this supraumbilical incision by incising the fascia so that the gallbladder can be able to be removed. Once this was done, the gallbladder was passed and will be taken to pathology. There was spillage of gallbladder fluid at the incision site as we were trying to take it out. Then, the fascia at the supraumbilical site was closed with 0 Vicryl stitches in interrupted fashion and then skin at all four sites was closed with 4-0 Monocryl suture after irrigation with IrriSept. Dermabond was applied. This marked the end of the procedure. The patient will be extubated. He just recovered from COVID infection about 2 weeks ago. Therefore, we will have to monitor the patient. Once he is stable, he will be discharged to home. SHAKIRA /[id number] RAMA
--- NOTE | 2020-12-02 14:02 | PCM48HPAN ---
Post Anesthesia Note - EVALUATION WITHIN 48HRS OF ANESTHETIC Vital Signs in Normal Range: Yes Patient Participated in Evaluation: Yes Respiratory Function Stable: Yes Airway Patent: Yes Cardiovascular Function Stable: Yes Hydration Status Stable: Yes Pain Control Satisfactory: Yes Nausea and Vomiting Control Satisfactory: Yes Mental Status Recovered: Yes Vital Signs: Last Vital Signs Temp 97.8 F 12/02/20 13:56 Pulse 98 12/02/20 13:56 Resp 16 12/02/20 13:56 BP 117/78 12/02/20 13:56 Pulse Ox 93 L 12/02/20 13:56 - COMMENTS/OBSERVATIONS Free Text/Narrative:: rests in bed. no complaints
== END 2020-12-02 15:40 | disposition home or self-care (01) ==
LOC: JD.ED 16:00 → JD.SDS 12-02 07:51
PROVIDERS: ATTEND Surgery
DX: K81.0 Acute cholecystitis (principal); K82.A1 Gangrene of gallbladder in cholecystitis; E11.9 Type 2 diabetes mellitus without complications; I10 Essential (primary) hypertension; Z79.899 Other long term (current) drug therapy; E78.00 Pure hypercholesterolemia, unspecified; E66.9 Obesity, unspecified; Z20.822 Contact with and (suspected) exposure to COVID-19
CPT/HCPCS: 36415; 47562; 74176; 80053; 81001; 82947; 83690; 85025; 88304; 93005; 96365; 96375; 99285; A9270; J0330; J0690; J0696; J1100; J1170; J2250; J2370; J2405; J2704; J2710; J2765; J3010; J3490; J7030; J7120; U0002; 00790